=== PATIENT | male | born 1945 | race Caucasian/White ===

== ENCOUNTER 2016-07-19 08:12 | Outpatient (CLI) | payer MEDICARE ==
[2016-07-19] MEDS ORDERED: IOPAMIDOL-300 50 ML VIAL PO ONE (09:35)
[2016-07-19] MEDS ORDERED: IOPAMIDOL-300 100 ML VIAL IVP ONE (09:40)
== END 2016-07-19 08:13 | disposition home or self-care (01) ==
DX: J43.9 Emphysema, unspecified (principal); K57.30 Diverticulosis of large intestine without perforation or abscess without bleeding
CPT/HCPCS: 71260; 74177; Q9967

== ENCOUNTER 2016-11-08 10:16 | Day surgery (SDC) | payer MEDICARE ==
[2016-11-08] MEDS ORDERED: LACTATED RINGERS 1,000 ML IV ONE (10:47)
[2016-11-08] MEDS ORDERED: fentaNYL 100 MCG/2 ML VIAL IVP ONE (11:19)
[2016-11-08] MEDS ORDERED: MIDAZOLAM 2 MG/2 ML VIAL IVP ONE (11:19)
[2016-11-08 12:34] VITALS: BP 108/62
== END 2016-11-08 10:17 | disposition home or self-care (01) ==
LOC: SDS 10:16
PROVIDERS: ATTEND Surgery
PROC: 0DBL8ZX Excision of Transverse Colon, Via Natural or Artificial Opening Endoscopic, Diagnostic (ICD-10-PCS; 2016-11-08)
PROC: 0DBN8ZX Excision of Sigmoid Colon, Via Natural or Artificial Opening Endoscopic, Diagnostic (ICD-10-PCS; 2016-11-08)
PROC: 0DBP8ZX Excision of Rectum, Via Natural or Artificial Opening Endoscopic, Diagnostic (ICD-10-PCS; principal; 2016-11-08 11:30)
DX: Z12.11 Encounter for screening for malignant neoplasm of colon (principal); K63.5 Polyp of colon; D12.3 Benign neoplasm of transverse colon; K62.1 Rectal polyp; K57.30 Diverticulosis of large intestine without perforation or abscess without bleeding; K64.8 Other hemorrhoids; J45.909 Unspecified asthma, uncomplicated; F17.210 Nicotine dependence, cigarettes, uncomplicated; Z80.1 Family history of malignant neoplasm of trachea, bronchus and lung
CPT/HCPCS: 45385; J7120

== ENCOUNTER 2020-07-03 14:27 | Outpatient (CLI) | payer MEDICARE ==
--- NOTE | 2020-07-03 17:25 | XRAY Report ---
PROCEDURE: Chest 2 View X-Ray INDICATIONS: UNIL INGUINAL HERNIA, W/O OBST OR GANGR, NOT SPCF TECHNIQUE: 2 view(s) of the chest. COMPARISON: CT chest dated 04/22/2015 FINDINGS: Surgical changes and devices: None. Lungs and pleura: No pleural effusions or pneumothorax. Lungs are clear. Stable hyperaeration and flattening of the hemidiaphragms. Chronic appearing diffuse interstitial prominence. Suggestion of po ssible ovoid density projecting over the distal margin of the right first rib likely artifactual. Thi s is suggested on maintainer operator radiograph of the chest CT. Mediastinum: Mediastinal contours are normal. Heart size is normal. Bones and chest wall: No suspicious bony abnormalities. Soft tissues appear unremarkable. IMPRESSION: 1. Chest without acute cardiopulmonary abnormalities or focal airspace disease. 2. Stable findings of chronic obstructive pulmonary physiology. 3. 1.2 cm oval density projecting over the tip of the right first rib likely artifactual. This was rush ggested on prior maintainer operator radiograph of 2016 CT. Recommend continued follow-up. Comparison with any rece nt chest radiographs would also be helpful. Reviewed by: Ang Jenkins MD on 07/03/2020 5:24 PM PDT Approved by: Ang Jenkins MD on 07/03/2020 5:24 PM PDT Station ID: [id number]
== END 2020-07-03 14:28 | disposition home or self-care (01) ==
LOC: LAB 14:27 → RT 14:28
PROVIDERS: ATTEND Nurse Practitioner Family
DX: Z01.818 Encounter for other preprocedural examination (principal); K40.90 Unilateral inguinal hernia, without obstruction or gangrene, not specified as recurrent; Z20.822 Contact with and (suspected) exposure to COVID-19; J44.9 Chronic obstructive pulmonary disease, unspecified; R93.7 Abnormal findings on diagnostic imaging of other parts of musculoskeletal system
CPT/HCPCS: 71046; 93005; U0004

== ENCOUNTER 2020-07-07 08:55 | Day surgery (SDC) | payer MEDICARE ==
--- NOTE | 2020-07-03 14:36 | CONSULTATION NOTE ---
Consultation Report: Anesthesia consult requested for 75 yo male for R IHR under GA. Past surgical history of colonscopy, cataract extraction, leg debridment, and umbilical hernia repair under GA with no complications. PMH includes every day smoker with progressive COPD. Pt denies SOB with activity and rare use of albuterol. O2 sats routinely in high 90s. Daily inhaled symbacort. 1-2 daily ETOH and cannabis. BPH and RLS. Other systems negative in assessment. MP1 with FROM at neck. Pt to have chest xray and EKG completed following SPA visit, results pend ing. Instructed on NPO status for DOS. Pt had no questions at this time.
[2020-07-07] MEDS ORDERED: ceFAZolin 2 GM/50 ML 2 GM/50 ML BAG IV ONE (09:07)
[2020-07-07] MEDS ORDERED: BUPIVACAINE 0.5% PF 30 ML VIAL ONE (09:11)
[2020-07-07] MEDS ORDERED: LIDOCAINE 2%-EPI 1:100000 20 ML MDV ONE (09:11)
[2020-07-07] MEDS ORDERED: KETOROLAC 30 MG/ML VIAL ONE (09:22)
[2020-07-07] MEDS ORDERED: ONDANSETRON 4 MG/2 ML VIAL ONE (09:22)
[2020-07-07] MEDS ORDERED: DEXAMETHASONE 4 MG/ML VIAL ONE (09:22)
[2020-07-07] MEDS ORDERED: PROPOFOL 200 MG/20 ML VIAL IVP ONE ×2 (09:22→10:25)
[2020-07-07] MEDS ORDERED: LIDOCAINE-MPF 2% 5 ML VIAL ONE (09:22)
[2020-07-07] MEDS ORDERED: fentaNYL 100 MCG/2 ML VIAL ONE (09:22)
[2020-07-07] MEDS ORDERED: LACTATED RINGERS 1,000 ML IV ONE ×2 (09:30→11:02)
--- NOTE | 2020-07-07 09:40 | ANESTHESIA ---
Pre-Anesthesia VS, & Labs - Diagnosis right inguinal hernia - Procedure right inguinal hernia repair with mesh Vital Signs: Temp Pulse Resp BP Pulse Ox 36.9 C 58 L 16 131/80 H 96 07/07/20 09:32 07/07/20 09:32 07/07/20 09:32 07/07/20 09:32 07/07/20 09:32 Height: 6 ft 2 in Weight (kg): 83 kg Body Mass Index: 23.5 BMI Classification: Healthy weight - NPO >8 hours Home Medications and Allergies Home Medications: Ambulatory Orders Fluticasone Propion/Salmeterol [Wixela 250-50 Inhub] 1 each IH BID 07/01/20 Gabapentin [Neurontin] 600 mg PO QPM 07/01/20 Quetiapine Fumarate [Seroquel] 50 mg PO QPM 07/01/20 Albuterol Sulfate [Proair Hfa Inhaler] 1 - 2 puffs INH Q4HR PRN 11/08/16 Fluticasone Propion/Salmeterol [Wixela 250-50 Inhub] 1 each IH BID 07/01/20 Gabapentin [Neurontin] 600 mg PO QPM 07/01/20 Quetiapine Fumarate [Seroquel] 50 mg PO QPM 07/01/20 Allergies/Adverse Reactions: Allergies Allergy/AdvReac Type Severity Reaction Status Date / Time No Known Drug Allergies Allergy Verified 11/08/16 10:53 Anes History & Medical History - Anesthetic History Anesthesia Complications: reports: No previous complications - Medical History Cardiovascular: reports: High cholesterol Pulmonary: reports: Asthma, COPD Gastrointestinal: reports: Hemorrhoids Urinary: reports: Benign prostate hypertrophy, Kidney stones Neuro: reports: Other (RLS) Musculoskeletal: reports: Osteoarthritis Endocrine/Autoimmune: reports: None Blood Disorders: reports: None Skin: reports: None Smoking Status: Current every day smoker (1/2 pack per day) Psychosocial: reports: Alcohol (1-2 drinks per day), Cannabis (daily edibles) History of Cancer?: No - Surgical History General: reports: Colonoscopy Eyes Ears Nose Throat (EENT): reports: Cataracts, Detached retina repair, Other Exam General: Alert, Oriented x3, Cooperative, No acute distress Dental: WNL Mouth Openin Fingerbreadth Neck Mobility: Normal Mallampati classification: II Thyromental Distance: 4-6 cm Respiratory: Lungs clear, Normal breath sounds, No respiratory distress, No accessory muscle use Cardiovascular: Regular rate, Normal S1, Normal S2, No murmurs Mental/Cognitive Status: Alert/Oriented X3, Normal for patient Plan Anesthesia Type: General Consent for Procedure(s) Verified and Reviewed: Yes Code Status: Attempt Resuscitation ASA classification: 2-Mild systemic disease Is this case an emergency?: No
[2020-07-07] MEDS ORDERED: BUPIVACAINE 0.5% PF 30 ML VIAL SUBQ ONE (10:00)
[2020-07-07] MEDS ORDERED: ceFAZolin 1 GM VIAL IR ONE (10:00)
[2020-07-07] MEDS ORDERED: LIDOCAINE 2%-EPI 1:100000 20 ML MDV SUBQ ONE (10:00)
[2020-07-07] MEDS ORDERED: ceFAZolin 1 GM VIAL ONE (10:30)
[2020-07-07] MEDS ORDERED: WATER FOR INJECTION,STERILE 10 ML MC ONE (10:30)
[2020-07-07] MEDS ORDERED: GLYCOPYRROLATE 1 MG/5 ML VIAL ONE (10:46)
[2020-07-07] MEDS ORDERED: ePHEDrine 50 MG/ML VIAL IVP ONE (10:48)
[2020-07-07] MEDS ORDERED: ACETAMINOPHEN 325 MG TABLET PO PRN (10:59)
[2020-07-07] MEDS ORDERED: oxyCODONE 5 MG TABLET PO PRN (10:59)
[2020-07-07] MEDS ORDERED: ONDANSETRON 4 MG/2 ML VIAL IVP PRN ×2 (10:59→11:17)
[2020-07-07] MEDS ORDERED: IBUPROFEN 600 MG TABLET PO PRN (10:59)
--- NOTE | 2020-07-07 10:59 | OPERATIVE REPORT ---
Operative Report - General Procedure Date: 07/07/20 Planned Procedure: Right inguinal hernia repair with mesh Pre-Op Diagnosis: Painful and enlarging right inguinal hernia Procedure Performed: Right inguinal hernia repair with mesh Post Op Diagnosis: Large right inguinal hernia - Procedure Note Primary Surgeon: Sabrina Anesthesia Provider: ADA Flower Anesthesia Technique: General LMA, Local Pathology: None Estimated Blood Loss (mL): 5 Findings: Large indirect right inguinal hernia Complications: None apparent - Other Other Information/Narrative: After obtaining informed consent, the patient is brought to the operating room and placed in the supine position on the operating table. Following successful induction of general endotracheal anesthesia, appropriate padding of all bony prominences, and placement of appropriate monitors, the abdomen was prepped and draped in the standard surgical fashion. A timeout was held per scope protocol. All elements of the surgical safety checklist were followed before, during, and after the procedure. We began the procedure by infiltrating a mixture of local anesthetics medial to the anterior superior iliac spine on the right. This was done to create an ileal inguinal nerve block. We then selected a site for an incision in the right lower quadrant just superior and lateral to the right pubic tubercle. This area was anesthetized with additional local anesthetic and an incision was created here.The incision was carried down through the skin and subcutaneous tissue to reveal the fascia of the external oblique aponeurosis. Retractor was placed and the aponeurosis was opened in direction of its fibers. The ilioinguinal nerve was immediately identified. We continued by identifying the spermatic cord and gently encircling it with a Randall drain. The hernia sac was carefully dissected free from the cord structures and was noted to be in the inferior medial position. The sac was in the indirect position. We carefully dissected the spermatic cord from the sac. The hernia sac was then placed back into the abdominal cavity. We elected to repair the hernia with a large Prolene hernia system mesh implant. This was dipped in Ancef containing solution and then deployed into the defect. The posterior leaflet was straightened and flattened in the preperitoneal space. The anterior leaflet was then nicked medially to provide a place for the spermatic cord and then closed with a Vicryl suture. The more inferior aspect was then sewn to José Miguel's ligament medially. Laterally it was tucked under the external beak aponeurosis. The wound was checked for hemostasis and irrigated with warm saline solution. It was aspirated free of all fluid and particulate matter. The extra oblique aponeurosis was then closed with a running locking Vicryl suture Jeny's fascia was closed with Vicryl suture and Monocryl stitches were placed in the skin. All sponge, needle, and instrument counts were correct at the conclusion of the case. The patient was allowed awaken from anesthesia without difficulty and taken to the postanesthesia care unit in good condition.
[2020-07-07] MEDS ORDERED: NALOXONE 0.4 MG/ML VIAL IVP PRN (11:17)
[2020-07-07] MEDS ORDERED: ePHEDrine 50 MG/ML VIAL IVP PRN (11:17)
[2020-07-07] MEDS ORDERED: HYDROmorphone 0.5 MG/0.5 ML SYRINGE IVP PRN (11:17)
[2020-07-07] MEDS ORDERED: fentaNYL 100 MCG/2 ML VIAL IVP PRN (11:17)
[2020-07-07] MEDS ORDERED: MORPHINE 2 MG/ML CARPUJECT IVP PRN (11:17)
[2020-07-07] MEDS ORDERED: ATROPINE ABBOJECT 1 MG/10 ML SYRINGE IVP PRN (11:17)
[2020-07-07] MEDS ORDERED: oxyCODONE 5 MG TABLET ONE (11:53)
[2020-07-07] MEDS ORDERED: LACTATED RINGERS 1,000 ML IV SCH (12:00)
[2020-07-07 12:25] VITALS: BP 133/76
--- NOTE | 2020-07-07 13:46 | ANESTHESIA POST OP EVALUATION ---
Anesthesia Post Eval - Post Anesthesia Eval Vitals: Last Vital Signs Temp 36.3 C L 07/07/20 12:24 Pulse 64 07/07/20 12:24 Resp 14 07/07/20 12:24 BP 133/76 H 07/07/20 12:24 Pulse Ox 96 07/07/20 12:24 CV Function Including HR & BP: positive: Stable Pain Control: positive: Satisfactory Nausea & Vomiting: positive: Negative Mental Status: positive: Baseline Respiratory Status: Airway Patent Hydration Status: Satisfactory Anesthesia Complications: positive: None
== END 2020-07-07 08:56 | disposition home or self-care (01) ==
LOC: SDS 08:55
PROVIDERS: ATTEND Surgery
DX: K40.90 Unilateral inguinal hernia, without obstruction or gangrene, not specified as recurrent (principal); J44.9 Chronic obstructive pulmonary disease, unspecified; N40.0 Benign prostatic hyperplasia without lower urinary tract symptoms; F17.210 Nicotine dependence, cigarettes, uncomplicated; Z79.51 Long term (current) use of inhaled steroids; Z72.89 Other problems related to lifestyle
CPT/HCPCS: 49505; A9270; C1781; J0690; J7120

== ENCOUNTER 2020-07-09 18:00 | Emergency (ER) | payer MEDICARE ==
[2020-07-09] MEDS ORDERED: SODIUM CHLORIDE 0.9% 1,000 ML IV STA (18:54)
[2020-07-09 19:09] LABS: BASOPHILS % (AUTO) 0.2 %; EOSINOPHILS # (AUTO) 0.1 10^3/uL (0.0-0.7); EOSINOPHILS % (AUTO) 0.7 %; HCT - HEMATOCRIT 46.5 % (42.0-52.0); HGB - HEMOGLOBIN 15.5 g/dL (14.0-18.0); LYMPHOCYTES # (AUTO) 0.9 10^3/uL (1.5-3.5); MEAN CORPUSCULAR HEMOGLOBIN 29.8 pg (27.0-31.0); MEAN CORPUSCULAR HGB CONC 33.3 g/dL (32.0-36.0); MEAN CORPUSCULAR VOLUME 89.3 fL (80.0-94.0); MEAN PLATELET VOLUME 9.7 fL (7.4-11.4); MONOCYTES # (AUTO) 0.5 10^3/uL (0.0-1.0); MONOCYTES % (AUTO) 5.6 %; NEUTROPHILS # (AUTO) 7.4 10^3/uL (1.5-6.6); NEUTROPHILS % (AUTO) 83.3 %; PLT - PLATELET COUNT 271 10^3/uL (130-450); RED BLOOD COUNT 5.21 10^6/uL (4.70-6.10); RED CELL DISTRIBUTION WIDTH 13.3 % (12.0-15.0); WHITE BLOOD COUNT 8.9 x10^3/uL (4.8-10.8)
[2020-07-09 19:22] LABS: ALBUMIN 4.3 g/dL (3.2-5.5); ALBUMIN/GLOBULIN RATIO 1.5 (1.0-2.2); BILIRUBIN,TOTAL 1.2 mg/dL (0.2-1.0); CALCIUM 9.9 mg/dL (8.5-10.3); CREATININE 0.9 mg/dL (0.6-1.2); TOTAL PROTEIN 7.2 g/dL (6.7-8.2)
--- NOTE | 2020-07-09 19:38 | ED Physician Documentation ---
PD HPI NVD - Stated complaint Stated Complaint: POST OP COMPLICATIONS - Chief complaint Chief Complaint: General - History obtained from History obtained from: Patient - History of Present Illness Timing - onset: How many days ago (2) Timing - duration: Days (2) Timing - details: Gradual onset, Still present Associated symptoms: Loss of appetite, Other (Patient has had nausea with some vomiting episodically since his surgery 2 days ago for a right inguinal hernia repair by traditional method. He has been taking pain medicine and thought it was from that. He had not had any pain medicine for the last 12 hours.). No: Fever, Abdominal pain Contributing factors: Other (inguinal hernia repair 2 days ago). No: Sick contact, Bad food, Recent antibiotics Improved by: No: Vomiting Worsened by: Eating Similar symptoms before: Has not had sx before Recently seen: Surgery Review of Systems Constitutional: denies: Fever, Chills Nose: denies: Rhinorrhea / runny nose, Congestion Throat: denies: Sore throat Respiratory: denies: Cough GI: reports: Nausea, Vomiting, Constipation (no BM for the past 3 days). denies: Abdominal Pain, Diarrhea : denies: Dysuria, Frequency Skin: denies: Rash, Lesions Neurologic: reports: Generalized weakness. denies: Focal weakness, Numbness, Near syncope, Altered mental status, Headache PD PAST MEDICAL HISTORY - Past Medical History Cardiovascular: High cholesterol Respiratory: Asthma, COPD Neuro: Other (RLS) Endocrine/Autoimmune: None GI: Hemorrhoids : Benign prostate hypertrophy, Kidney stones HEENT: Chronic vision loss, Chronic hearing loss Psych: None Musculoskeletal: Osteoarthritis Derm: None - Past Surgical History General: Colonoscopy HEENT: Cataracts, Detached retina repair, Other - Present Medications Home Medications: Ambulatory Orders Medication Instructions Recorded Confirmed Albuterol Sulfate [Proair Hfa 1 - 2 puffs INH Q4HR PRN 11/08/16 07/09/20 Inhaler] Fluticasone Propion/Salmeterol 1 each IH BID 07/01/20 07/09/20 [Wixela 250-50 Inhub] Gabapentin [Neurontin] 600 mg PO QPM 07/01/20 07/09/20 Quetiapine Fumarate [Seroquel] 50 mg PO QPM 07/01/20 07/09/20 oxyCODONE [Roxicodone] 5 mg PO Q4-6H PRN #20 tablet 03/29/21 03/31/21 Ondansetron HCl [Zofran] 4 mg PO Q6HR PRN #30 tab 07/08/20 07/09/20 Tramadol HCl [Ultram] 50 - 100 mg PO Q6H PRN #40 tablet 07/08/20 07/09/20 Meclizine HCl [Antivert] 1 tablet PO Q6H PRN #20 tab 07/09/20 - Allergies Allergies/Adverse Reactions: Allergies Allergy/AdvReac Type Severity Reaction Status Date / Time No Known Drug Allergies Allergy Verified 07/09/20 18:13 - Social History Smoking Status: Current every day smoker (1/2 pack per day) PD ED PE NORMAL - Vitals Vital signs reviewed: Yes - General General: Alert and oriented X 3, No acute distress, Well developed/nourished - HEENT HEENT: Pharynx benign. No: Moist mucous membranes - Neck Neck: Supple, no meningeal sign, No adenopathy - Cardiac Cardiac: RRR, No murmur - Respiratory Respiratory: Clear bilaterally - Abdomen Abdomen: Normal bowel sounds, Soft, Non distended, No organomegaly, Other (Right inguinal hernia surgical wound with some mild local bruising but no signs of infection. Bowel sounds are present and hypoactive. There is mild local tenderness at the incision but no generalized abdominal tenderness.) - Male Male : Deferred - Rectal Rectal: Deferred - Back Back: No CVA TTP - Derm Derm: Normal color, Warm and dry - Neuro Neuro: Alert and oriented X 3, No motor deficit, Normal speech Results - Vitals Vitals: Vital Signs - 24 hr 07/09/20 07/09/20 07/09/20 18:13 20:19 21:52 Temperature 36.8 C Heart Rate 67 56 L 67 Respiratory 18 16 16 Rate Blood Pressure 176/85 H 151/83 H 164/89 H O2 Saturation 99 98 97 Oxygen O2 Source Room air - Labs Labs: Laboratory Tests 07/09/20 07/09/20 19:05 19:05 WBC 8.9 RBC 5.21 Hgb 15.5 Hct 46.5 MCV 89.3 MCH 29.8 MCHC 33.3 RDW 13.3 Plt Count 271 MPV 9.7 Neut # (Auto) 7.4 H Lymph # (Auto) 0.9 L [place] # (Auto) 0.5 Eos # (Auto) 0.1 Baso # (Auto) 0.0 Absolute Nucleated RBC 0.00 Nucleated RBC % 0.0 Sodium 137 Potassium 4.0 Chloride 99 L Carbon Dioxide 25 Anion Gap 13.0 BUN 13 Creatinine 0.9 Estimated GFR (MDRD) 83 L Glucose 94 Calcium 9.9 Total Bilirubin 1.2 H AST 27 ALT 22 Alkaline Phosphatase 85 Total Protein 7.2 Albumin 4.3 Globulin 2.9 Albumin/Globulin Ratio 1.5 Lipase 31 PD MEDICAL DECISION MAKING - ED course Complexity details: re-evaluated patient (He is feeling much better post hydration with antiemetics.), considered differential (The hernia repair was traditional open incision and not done laparoscopically. He does not have any general abdominal tenderness. I do not feel he has any concern for obstruction or such. I think he is nausea and vomiting are medication related mostly.), d/w patient Departure - Departure Disposition: 01 Home, Self Care Clinical Impression: Postoperative nausea and vomiting, Dehydration Condition: Stable Record reviewed to determine appropriate education?: Yes Instructions: ED Nausea Vomiting Follow-Up: RAYA QUEEN ARNP [Primary Care Provider] - Susan Bennett MD [Provider Admit Priv/Credential] - Prescriptions: Meclizine HCl [Antivert] 1 tablet PO Q6H PRN #20 tab PRN Reason: Vertigo Comments: Small frequent sips and bland food tonight and tomorrow and progress as able. Continue stool softener and you could add a mild laxative such as senna once or twice daily. Continue ondansetron every 6-8 hours if needed for nausea. You could add meclizine every 6 hours if needed for nausea or mild dizziness as well. I would anticipate improvement over the next couple days more with the postoperative medications and anesthesia having more time to wear off. Being rehydrated will help as well. Contact your primary care or Dr. Grossman if still feeling badly over the next day or 2. Discharge Date/Time: 07/09/20 22:04
[2020-07-09] MEDS ORDERED: ONDANSETRON 4 MG/2 ML VIAL IVP STA (19:54)
[2020-07-09] MEDS ORDERED: LACTATED RINGERS 1,000 ML IV STA (19:54)
[2020-07-09] MEDS ORDERED: FAMOTIDINE 20 MG/2 ML VIAL IVP STA (19:54)
[2020-07-09] MEDS ORDERED: MECLIZINE 12.5 MG TABLET PO STA (19:55)
[2020-07-09] MEDS ORDERED: KETOROLAC 30 MG/ML VIAL IVP STA (20:12)
[2020-07-09 21:54] VITALS: BP 164/89
--- OUTSIDE RECORDS SUMMARY | 2020-07-16 00:16 | EXTERNAL MEDICAL SUMMARY RPT | Continuity of Care Document ---
:1945 Demographics Phone Unavailable Preferred Language Unknown Marital Status Unknown [employer]ar[employer] Affiliation Unknown Race Unknown Ethnic Group Unknown Author Organization [facility] Address [address] [place] [address] Phone Social History date description facility [phone]
== END 2020-07-09 22:04 | disposition home or self-care (01) ==
LOC: ED 18:00
DX: R11.2 Nausea with vomiting, unspecified (principal); T81.89XA Other complications of procedures, not elsewhere classified, initial encounter; Y83.8 Other surgical procedures as the cause of abnormal reaction of the patient, or of later complication, without mention of misadventure at the time of the procedure; E86.0 Dehydration; F17.200 Nicotine dependence, unspecified, uncomplicated
CPT/HCPCS: 36415; 80053; 83690; 85025; 96374; 96375; 99283; 99284; A9270; J7120

== ENCOUNTER 2020-08-25 11:02 | Outpatient (CLI) | payer MEDICARE ==
--- NOTE | 2020-08-25 14:51 | CT Report ---
PROCEDURE: Low Dose Lung Cancer Screen INDICATIONS: CURRENT SMOKER TECHNIQUE: Noncontrast low-dose 5 mm thick sections acquired from the pulmonary apices to the posterior costophr enic angles. 7 mm thick coronal and sagittal MIP reformats were then acquired. For radiation dose r eduction, the following was used: automated exposure control, adjustment of mA and/or kV according t o patient size. COMPARISON: CT abdomen pelvis 07/19/2016, CT chest 04/22/2015 FINDINGS: Image quality: Excellent. Lungs and pleura: Lungs are hyperexpanded. Some of this changes are present. Small pulmonary blebs a re scattered bilaterally. There are no effusions or consolidations. No visualized mass lesions. Mary l apical scarring is noted. Mediastinum: Heart size is normal. Trace pericardial effusion. No mediastinal adenopathy by size cr iteria. Thoracic aorta and central pulmonary arteries are normal in size. Esophagus is normal in ca liber. No hiatal hernia. Bones and chest wall: No suspicious bony lesions. No vertebral body compression fractures. No axil elpidio or supraclavicular adenopathy by size criteria. Thyroid appears grossly normal. Abdomen: Visualized upper abdomen solid organs and bowel loops appear normal in the absence of contr ast. IMPRESSION: 1. Emphysematous changes. 2. No effusions, consolidations or mass lesions. Lung rads category 1. Recommend continued annual CT screening. Reviewed by: Ailyn Stevens MD on 08/25/2020 2:49 PM PDT Approved by: Ailyn Stevens MD on 08/25/2020 2:49 PM PDT Station ID: [id number]
== END 2020-08-25 11:03 | disposition home or self-care (01) ==
LOC: DI 11:02
PROVIDERS: ATTEND Nurse Practitioner Family
DX: Z12.2 Encounter for screening for malignant neoplasm of respiratory organs (principal); J43.9 Emphysema, unspecified; F17.210 Nicotine dependence, cigarettes, uncomplicated

== ENCOUNTER 2020-11-18 19:38 | Emergency (ER) | payer MEDICARE ==
[2020-11-18 19:44] VITALS: BP 135/84
--- NOTE | 2020-11-18 20:56 | ED Physician Documentation ---
PD HPI UPPER EXT INJURY - Stated complaint Stated Complaint: LT HAND LAC - Chief complaint Chief Complaint: Laceration - History obtained from History obtained from: Patient - History of Present Illness Location: Left, Finger (index/thumb) Type of injury: Laceration Where injury occurred: Home Timing - onset: How many hours ago (1) Timing - duration: Hours (1) Timing - details: Abrupt onset Pain level max: 6 Pain level now: 4 Improved by: Rest, Immobilization Worsened by: Moving, Palpating Associated symptoms: No: Weakness, Numbness, Tingling, Swelling Contributing factors: No: Anticoagulated - Additonal information Additional information: 75-year-old male states that he cut his Left hand with a saw today. Injury to the left thumb, just on the nail also an injury to the left index finger on the volar aspect. Patient is not on blood thinners. Review of Systems Constitutional: denies: Fever, Chills GI: denies: Vomiting, Diarrhea Skin: denies: Rash Musculoskeletal: denies: Neck pain, Back pain Neurologic: denies: Headache PD PAST MEDICAL HISTORY - Past Medical History Cardiovascular: High cholesterol Respiratory: Asthma, COPD Neuro: Other Endocrine/Autoimmune: None GI: Hemorrhoids : Benign prostate hypertrophy, Kidney stones HEENT: Chronic vision loss, Chronic hearing loss Psych: None Musculoskeletal: Osteoarthritis Derm: None - Past Surgical History Past Surgical History: Yes General: Colonoscopy HEENT: Cataracts, Detached retina repair, Other - Present Medications Home Medications: Ambulatory Orders Medication Instructions Recorded Confirmed Albuterol Sulfate [Proair Hfa 1 - 2 puffs INH Q4HR PRN 11/08/16 07/09/20 Inhaler] Fluticasone Propion/Salmeterol 1 each IH BID 07/01/20 07/09/20 [Wixela 250-50 Inhub] Gabapentin [Neurontin] 600 mg PO QPM 07/01/20 07/09/20 Quetiapine Fumarate [Seroquel] 50 mg PO QPM 07/01/20 07/09/20 oxyCODONE [Roxicodone] 5 mg PO Q4-6H PRN #20 tablet 07/07/20 07/09/20 Ondansetron HCl [Zofran] 4 mg PO Q6HR PRN #30 tab 07/08/20 07/09/20 Tramadol HCl [Ultram] 50 - 100 mg PO Q6H PRN #40 tablet 07/08/20 07/09/20 Meclizine HCl [Antivert] 1 tablet PO Q6H PRN #20 tab 07/09/20 - Allergies Allergies/Adverse Reactions: Allergies Allergy/AdvReac Type Severity Reaction Status Date / Time No Known Drug Allergies Allergy Verified 11/18/20 19:41 - Social History Does the pt smoke?: Yes Smoking Status: Current every day smoker Does the pt drink ETOH?: Yes Does the pt have substance abuse?: Yes - Immunizations Immunizations are current?: Yes PD ED PE NORMAL - Vitals Vital signs reviewed: Yes - General General: Alert and oriented X 3, No acute distress - Derm Derm: Warm and dry - Neuro Neuro: Alert and oriented X 3 - Psych Psych: Normal mood, Normal affect PD ED PE EXPANDED - Extremities JULIANA UE/Hands Visual: 1 - laceration (0.1 cm laceration. Nonbleeding. Neurovascularly intact. No tendon injury.) 2 - laceration (0.2 cm laceration. Neurovascular intact. Tendon intact. No active bleeding.) 3 - laceration (0.3 cm laceration. Neurovascular intact. Tendon intact. No active bleeding.) Results - Vitals Vitals: Oxygen O2 Source Room air Procedures - Laceration (location) L hand Length in cm: 0.6 (includes all 3 lacerations.) Wound type: Linear, Into subcut fat, Clean Neurovascular status: Sensory intact, Motor intact, Vascular intact Tendon involvement: Tendon intact Wound preparation: Irrigated copiously NS, Wound explored, To the base Skin layer closure: Dermabond, Other (T ring closure system) Other: Patient tolerated well, No complications, Neurovascular intact, Dressing applied, Tetanus booster given PD MEDICAL DECISION MAKING - ED course Complexity details: reviewed results, re-evaluated patient, considered differential, d/w patient ED course: Lacerations were all repaired with the T ring closure system. Tolerated well. No further bleeding. No tendon laceration. No evidence of bony injury. Tdap given. Warnings of infection and instructions on wound care given at bedside. Also counseled on how to minimize scarring. Patient counseled regarding signs and symptoms for which I believe and urgent re-evaluation would be necessary. Patient with good understanding of and agreement to plan and is comfortable going home at this time This document was made in part using voice recognition software. While efforts are made to proofread this document, sound alike and grammatical errors may occur. Departure - Departure Disposition: 01 Home, Self Care Clinical Impression: Finger laceration Qualifiers: Encounter type: initial encounter Finger: index finger Damage to nail status: without damage Foreign body presence: without foreign body Laterality: left Qualified Code(s): S61.211A - Laceration without foreign body of left index finger without damage to nail, initial encounter Thumb laceration Qualifiers: Encounter type: initial encounter Damage to nail status: with damage Foreign body presence: without foreign body Laterality: left Qualified Code(s): S61.112A - Laceration without foreign body of left thumb with damage to nail, initial encounter Condition: Good Instructions: ED Laceration Hand, ED Laceration Ext Skin Glue Follow-Up: RAYA QUEEN ARNP [Primary Care Provider] - As Needed Comments: Keep the wound clean. Limit the use of the hand for the next 24 hours. The dressing should fall off on its own in about a week or 2. Avoid any ointment as this may dissolve the glue. Return if you notice redness, swelling or drainage from the wound. Discharge Date/Time: 11/18/20 21:14
[2020-11-18] MEDS: TETANUS/DIPHTHERIA/PERTUSSIS 0.5 ML SYRINGE IM ONE (21:19)
== END 2020-11-18 21:14 | disposition home or self-care (01) ==
LOC: ED 19:38
DX: S61.112A Laceration without foreign body of left thumb with damage to nail, initial encounter (principal); S61.211A Laceration without foreign body of left index finger without damage to nail, initial encounter; F17.200 Nicotine dependence, unspecified, uncomplicated; W27.0XXA Contact with workbench tool, initial encounter
CPT/HCPCS: 12001; 90471; 99282; 99283

== ENCOUNTER 2021-01-13 12:31 | Emergency (ER) | payer MEDICARE ==
[2021-01-13] MEDS ORDERED: ONDANSETRON 4 MG/2 ML VIAL IVP STA (12:44)
[2021-01-13] MEDS ORDERED: SODIUM CHLORIDE 0.9% 1,000 ML IV STA (12:44)
--- NOTE | 2021-01-13 12:54 | ED Physician Documentation ---
History of Present Illness - Stated complaint Stated Complaint: VOMITING - Chief complaint Chief Complaint: Abd Pain - History obtained from History obtained from: Patient - History of Present Illness Timing: How many days ago (2) Pain level max: 3 Pain level now: 2 - Additonal information Additional information: Patient is a 75-year-old male who presents to the emergency department stating that he took 4 doses of tramadol on Tuesday, started having vomiting on Tuesday night. He states he has had continued vomiting since that time. Has diffuse abdominal discomfort and cramping. Denies any diarrhea or constipation. He states he is still unable to tolerate p.o. today. He states similar episode occurred when he took oxycodone after a surgery. No fevers. Occasional chills. No recent travel. No recent antibiotics. No recent surgery. Review of Systems Ten Systems: 10 systems reviewed and negative Constitutional: reports: Chills. denies: Fever Nose: denies: Rhinorrhea / runny nose, Congestion Throat: denies: Sore throat Cardiac: denies: Chest pain / pressure Respiratory: denies: Cough GI: reports: Nausea, Vomiting. denies: Constipation, Diarrhea, Hematemesis, Bloody / black stool Skin: denies: Rash Musculoskeletal: denies: Neck pain, Back pain Neurologic: denies: Headache PD PAST MEDICAL HISTORY - Past Medical History Cardiovascular: High cholesterol Respiratory: Asthma, COPD Neuro: Other Endocrine/Autoimmune: None GI: Hemorrhoids : Benign prostate hypertrophy, Kidney stones HEENT: Chronic vision loss, Chronic hearing loss Psych: None Musculoskeletal: Osteoarthritis Derm: None - Past Surgical History Past Surgical History: Yes General: Colonoscopy HEENT: Cataracts, Detached retina repair, Other - Present Medications Home Medications: Ambulatory Orders Medication Instructions Recorded Confirmed Albuterol Sulfate [Proair Hfa 1 - 2 puffs INH Q4HR PRN 11/08/16 07/09/20 Inhaler] Fluticasone Propion/Salmeterol 1 each IH BID 07/01/20 07/09/20 [Wixela 250-50 Inhub] Gabapentin [Neurontin] 600 mg PO QPM 07/01/20 07/09/20 Quetiapine Fumarate [Seroquel] 50 mg PO QPM 07/01/20 07/09/20 oxyCODONE [Roxicodone] 5 mg PO Q4-6H PRN #20 tablet 07/07/20 07/09/20 Ondansetron HCl [Zofran] 4 mg PO Q6HR PRN #30 tab 07/08/20 07/09/20 Tramadol HCl [Ultram] 50 - 100 mg PO Q6H PRN #40 tablet 07/08/20 07/09/20 Meclizine HCl [Antivert] 1 tablet PO Q6H PRN #20 tab 07/09/20 Ondansetron Odt [Zofran] 4 mg TL Q6H PRN #10 tablet 01/13/21 Promethazine [Phenergan] 25 mg PO Q6H PRN #10 tab 01/13/21 - Allergies Allergies/Adverse Reactions: Allergies Allergy/AdvReac Type Severity Reaction Status Date / Time oxycodone [From OxyContin] AdvReac Nausea Verified 01/13/21 12:42 - Social History Does the pt smoke?: Yes Smoking Status: Current every day smoker Does the pt drink ETOH?: Yes Does the pt have substance abuse?: Yes - Immunizations Immunizations are current?: Yes PD ED PE NORMAL - Vitals Vital signs reviewed: Yes - General General: Alert and oriented X 3, No acute distress, Well developed/nourished - HEENT HEENT: Moist mucous membranes - Neck Neck: Supple, no meningeal sign - Cardiac Cardiac: RRR, Strong equal pulses - Respiratory Respiratory: No respiratory distress, Clear bilaterally - Abdomen Abdomen: Normal bowel sounds, Soft, Non tender, Non distended - Derm Derm: Warm and dry - Extremities Extremities: No calf tenderness / cord - Neuro Neuro: Alert and oriented X 3 - Psych Psych: Normal mood, Normal affect Results - Vitals Vitals: Vital Signs - 24 hr 01/13/21 01/13/21 12:35 14:08 Temperature 36.8 C Heart Rate 73 70 Respiratory 20 10 L Rate Blood Pressure 178/90 H 169/95 H O2 Saturation 97 97 Oxygen O2 Source Room air - Labs Labs: Laboratory Tests 01/13/21 01/13/21 01/13/21 12:50 12:50 14:05 WBC 10.5 RBC 5.57 Hgb 16.0 Hct 48.2 MCV 86.5 MCH 28.7 MCHC 33.2 RDW 13.5 Plt Count 322 MPV 9.9 Neut # (Auto) 8.7 H Lymph # (Auto) 1.1 L [place] # (Auto) 0.7 Eos # (Auto) 0.0 Baso # (Auto) 0.0 Absolute Nucleated RBC 0.00 Nucleated RBC % 0.0 Sodium 137 Potassium 4.0 Chloride 101 Carbon Dioxide 22 Anion Gap 14.0 H BUN 16 Creatinine 0.9 Estimated GFR (MDRD) 83 L Glucose 114 H Calcium 9.8 Total Bilirubin 1.3 H AST 34 ALT 28 Alkaline Phosphatase 80 Total Protein 7.8 Albumin 4.6 Globulin 3.2 Albumin/Globulin Ratio 1.4 Lipase 35 Urine Color YELLOW Urine Clarity CLEAR Urine pH 7.0 Ur Specific [place] 1.015 Urine Protein 30 H Urine Glucose (UA) NEGATIVE Urine Ketones 40 H Urine Occult Blood SMALL H Urine Nitrite NEGATIVE Urine Bilirubin NEGATIVE Urine Urobilinogen 0.2 (NORMAL) Ur Leukocyte Esterase NEGATIVE Urine RBC 6-10 H Urine WBC 0-3 Ur Squamous Epith Cells MOD Squamous H Urine Bacteria Rare Ur Microscopic Review INDICATED Urine Culture Comments NOT INDICATED - Rads (name of study) CT abdomen pelvis Radiology: Final report received, EMP read contemporaneously, See rad report PD MEDICAL DECISION MAKING - ED course Complexity details: reviewed results, re-evaluated patient, considered differential, d/w patient ED course: 75-year-old male with vomiting today. Unclear etiology. Symptoms resolved with Zofran and IV fluids. No acute findings on laboratory testing or CT scan. Possibly related to the tramadol? We will have him stop this at home. Tolerating p.o. without difficulty here. Abdomen is soft, nontender nond istended on serial exam. Patient counseled regarding signs and symptoms for which I believe and urgent re-evaluation would be necessary. Patient with good understanding of and agreement to plan and is comfortable going home at this time This document was made in part using voice recognition software. While efforts are made to proofread this document, sound alike and grammatical errors may occur. IMPRESSION: No acute abnormality can be seen. No dilated loops of bowel are seen. No free air or significant free fluid can be seen. Normal appendix. Incidental note is made of: Small hiatal hernia Stable right renal cyst Diverticulosis, without active diverticulitis Prominent prostate Lumbar spine degenerative change Levoconvex scoliotic curvature Departure - Departure Disposition: 01 Home, Self Care Clinical Impression: Vomiting Qualifiers: Vomiting type: unspecified Vomiting Intractability: non-intractable Nausea presence: with nausea Qualified Code(s): R11.2 - Nausea with vomiting, unspecified Condition: Good Instructions: ED Nausea Vomiting Follow-Up: your,doctor in 1 week [Other] Prescriptions: Promethazine [Phenergan] 25 mg PO Q6H PRN #10 tab PRN Reason: Nausea / Vomiting Ondansetron Odt [Zofran] 4 mg TL Q6H PRN #10 tablet PRN Reason: Nausea / Vomiting Comments: Your prescriptions were sent to [facility] in [place]. Drink plenty of water. Return if you worsen. Your CT scan does not show any acute abnormalities. Pl ease stop the tramadol for now.
[2021-01-13 12:56] LABS: BASOPHILS % (AUTO) 0.3 %; EOSINOPHILS % (AUTO) 0.1 %; HCT - HEMATOCRIT 48.2 % (42.0-52.0); LYMPHOCYTES # (AUTO) 1.1 10^3/uL (1.5-3.5); MEAN CORPUSCULAR HEMOGLOBIN 28.7 pg (27.0-31.0); MEAN CORPUSCULAR HGB CONC 33.2 g/dL (32.0-36.0); MEAN CORPUSCULAR VOLUME 86.5 fL (80.0-94.0); MEAN PLATELET VOLUME 9.9 fL (7.4-11.4); MONOCYTES # (AUTO) 0.7 10^3/uL (0.0-1.0); MONOCYTES % (AUTO) 6.3 %; NEUTROPHILS # (AUTO) 8.7 10^3/uL (1.5-6.6); PLT - PLATELET COUNT 322 10^3/uL (130-450); RED BLOOD COUNT 5.57 10^6/uL (4.70-6.10); RED CELL DISTRIBUTION WIDTH 13.5 % (12.0-15.0); WHITE BLOOD COUNT 10.5 x10^3/uL (4.8-10.8)
[2021-01-13 13:10] LABS: ALBUMIN 4.6 g/dL (3.2-5.5); ALBUMIN/GLOBULIN RATIO 1.4 (1.0-2.2); BILIRUBIN,TOTAL 1.3 mg/dL (0.2-1.0); CALCIUM 9.8 mg/dL (8.5-10.3); CREATININE 0.9 mg/dL (0.6-1.2); TOTAL PROTEIN 7.8 g/dL (6.7-8.2)
[2021-01-13] MEDS ORDERED: IOVERSOL 320 100 ML VIAL IVP ONE ×2 (13:48→17:54)
[2021-01-13] MEDS ORDERED: KETOROLAC 30 MG/ML VIAL IVP STA (13:49)
[2021-01-13 14:13] LABS: BILIRUBIN,URINE NEGATIVE (NEGATIVE); GLUCOSE, URINE (UA) NEGATIVE (NEGATIVE); KETONES,URINE (UA) 40 mg/dL (NEGATIVE); LEUKOCYTE ESTERASE, URINE NEGATIVE (NEGATIVE); NITRITE,URINE NEGATIVE (NEGATIVE); OCCULT BLOOD,URINE SMALL (NEGATIVE); PROTEIN,URINE 30 mg/dL (NEGATIVE); UROBILINOGEN,URINE 0.2 (NORMAL) E.U./dL (NORMAL)
[2021-01-13 14:21] LABS: BACTERIA,URINE Rare /HPF (None Seen); CLARITY,URINE CLEAR (CLEAR); SQUAMOUS EPITHELIAL CELL,UR MOD Squamous (<= Few); WBC,URINE 0-3 /HPF (0-3)
--- NOTE | 2021-01-13 14:23 | CT Report ---
PROCEDURE: Abdomen/Pelvis W INDICATIONS: diffuse abd pain, vomiting CONTRAST: IV CONTRAST: Optiray 320 ml: 100 PO CONTRAST: *NO PO CONTRAST TECHNIQUE: After the administration of 07/19/2016 contrast, 5 mm thick sections acquired from the diaphragms to t he symphysis. 5 mm thick coronal and sagittal reformats were acquired. For radiation dose reduction , the following was used: automated exposure control, adjustment of mA and/or kV according to patien t size. COMPARISON: None. FINDINGS: Image quality: Excellent. ABDOMEN: Lung bases: Lung bases are clear. Heart size is normal. A small hiatal hernia is incidentally note d. Solid organs: Liver and spleen are normal in size and enhancement. Gallbladder wall does not appear thickened. Biliary system is non dilated. Pancreas enhances normally. No adrenal nodules. Kidn eys demonstrate normal size and enhancement, without hydronephrosis. Along the medial aspect of the right kidney, there is a nonenhancing cyst seen that measures up to 3 cm, which is not significantly changed compared to 2017. Peritoneum and bowel: Bowel loops demonstrate normal wall thickness and caliber. No free fluid or a ir. Diverticulosis can be seen, without pablo findings of active diverticulitis. A normal appendix i s incidentally noted. Nodes and vessels: No retroperitoneal or mesenteric adenopathy by size criteria. Aorta and inferior vena cava are normal in size. Atherosclerotic calcification is seen. Miscellaneous: No ventral hernias. PELVIS: Genitourinary: Bladder wall thickness is normal. The prostate is prominent, measuring 6.3 cm transv ersely Miscellaneous: No inguinal hernias or adenopathy. Bones: No suspicious bony lesions. No vertebral body compression fractures. Degenerative changes a re seen throughout, which are worst involving the lumbar spine. Mild levoconvex scoliotic curvature i s seen. IMPRESSION: No acute abnormality can be seen. No dilated loops of bowel are seen. No free air or significant free fluid can be seen. Normal appendix. Incidental note is made of: Small hiatal hernia Stable right renal cyst Diverticulosis, without active diverticulitis Prominent prostate Lumbar spine degenerative change Levoconvex scoliotic curvature Reviewed by: Jayden Kaplan MD on 01/13/2021 1:21 PM AKDT Approved by: Jayden Kaplan MD on 01/13/2021 1:21 PM AKDT Station ID: [id number]
[2021-01-13 14:59] VITALS: BP 171/89
== END 2021-01-13 15:03 | disposition home or self-care (01) ==
LOC: ED 12:31
DX: R11.2 Nausea with vomiting, unspecified (principal); F17.200 Nicotine dependence, unspecified, uncomplicated
CPT/HCPCS: 36415; 74177; 80053; 81001; 83690; 85025; 96361; 96374; 96375; 99284; Q9967; 81003; 87086

== ENCOUNTER 2021-10-02 19:05 | Emergency (ER) | payer MEDICARE ==
[2021-10-02] MEDS ORDERED: BACITRACIN ZINC OINT 1 PACKET TOP STA (19:35)
--- NOTE | 2021-10-02 19:52 | ED Physician Documentation ---
History of Present Illness - Stated complaint Stated Complaint: LT THUMB VS SAW - Chief complaint Chief Complaint: Laceration - Additonal information Additional information: 76-year-old male presents to the emergency department for evaluation of a left thumb laceration sustained when using a table saw. Reports his tetanus as up-to-date. He is right-hand dominant. Review of Systems Constitutional: reports: Reviewed and negative Ears: reports: Loss of hearing Nose: reports: Reviewed and negative Cardiac: reports: Reviewed and negative Respiratory: reports: Reviewed and negative Skin: reports: Laceration (s) PD PAST MEDICAL HISTORY - Past Medical History Cardiovascular: High cholesterol Respiratory: Asthma, COPD Neuro: Other Endocrine/Autoimmune: None GI: Hemorrhoids : Benign prostate hypertrophy, Kidney stones HEENT: Chronic vision loss, Chronic hearing loss Psych: None Musculoskeletal: Osteoarthritis Derm: None - Past Surgical History Past Surgical History: Yes General: Colonoscopy HEENT: Cataracts, Detached retina repair, Other - Present Medications Home Medications: Ambulatory Orders Medication Instructions Recorded Confirmed Albuterol Sulfate [Proair Hfa 1 - 2 puffs INH Q4HR PRN 11/08/16 07/09/20 Inhaler] Fluticasone Propion/Salmeterol 1 each IH BID 07/01/20 07/09/20 [Wixela 250-50 Inhub] Gabapentin [Neurontin] 600 mg PO QPM 07/01/20 07/09/20 Quetiapine Fumarate [Seroquel] 50 mg PO QPM 07/01/20 07/09/20 oxyCODONE [Roxicodone] 5 mg PO Q4-6H PRN #20 tablet 07/07/20 07/09/20 Tramadol HCl [Ultram] 50 - 100 mg PO Q6H PRN #40 tablet 07/08/20 07/09/20 ondansetron HCL [Zofran] 4 mg PO Q6HR PRN #30 tab 07/08/20 07/09/20 Meclizine HCl [Antivert] 1 tablet PO Q6H PRN #20 tab 07/09/20 Ondansetron Odt [Zofran] 4 mg TL Q6H PRN #10 tablet 01/13/21 Promethazine [Phenergan] 25 mg PO Q6H PRN #10 tab 01/13/21 HYDROcod/ACETAM 5/325 [Norton 5/325] 1 tablet PO BID PRN #10 tablet 10/02/21 Ondansetron Odt [Zofran] 4 mg TL Q6H PRN #10 tablet 10/02/21 cephALEXin [Keflex] 500 mg PO Q6H #28 cap 10/02/21 - Allergies Allergies/Adverse Reactions: Allergies Allergy/AdvReac Type Severity Reaction Status Date / Time oxycodone [From OxyContin] AdvReac Nausea Verified 10/02/21 19:20 tramadol AdvReac Nausea Verified 10/02/21 19:20 - Social History Does the pt smoke?: Yes Smoking Status: Current every day smoker Does the pt drink ETOH?: Yes Does the pt have substance abuse?: Yes - Immunizations Immunizations are current?: Yes PD ED PE EXPANDED - Extremities Extremities: Left finger(s) (3.5 cm laceration fat pad of the thumb at DIP. Patient is able to flex and extend against resistance. Heavy bleeding. Moderate amount of tissue loss) Results - Vitals Vitals: Vital Signs - 24 hr 10/02/21 19:17 Temperature 37.3 C Heart Rate 72 Respiratory 16 Rate Blood Pressure 133/70 H O2 Saturation 93 Oxygen O2 Source Room air - Rads (name of study) thumb Radiology: Final report received (No intra-articular involvement.) Procedures - Laceration (location) left thumb Length in cm: 3.5 Wound type: Irregular, Into muscle, Contaminated Neurovascular status: Motor intact Tendon involvement: Tendon intact Anesthesia: Lidocaine 1% Wound preparation: Hibiclens, Irrigated copiously NS, Debrided extensively, Wound explored Skin layer closure: Interrupted, Size #-0 - enter number (4), Sutures - enter # (6) Other: Patient tolerated well, No complications, Tetanus UTD PD MEDICAL DECISION MAKING - ED course Complexity details: reviewed results, considered differential, d/w patient ED course: 76-year-old male presents emergency department with a large gaping wound to the distal tip of his left thumb after encountering a sawblade this afternoon. X- ray does not reveal a fracture. He is able to flex and extend the thumb at the DIP joint. The distal tip does have some numbness and I suspect a peripheral nerve injury. Much of the wound required debridement. Wound was approximated with 6 sutures. There is a section of the wound on the ulnar side of the thumb that was not amenable to primary closure. Patient will be started on Keflex prophylactically. A prescription for hydrocodone and Zofran given history of vomiting with opiates was sent to the pharmacy. Routine wound care and emergent return precautions were discussed. Departure - Departure Disposition: 01 Home, Self Care Clinical Impression: Laceration of left thumb Qualifiers: Encounter type: sequela Damage to nail status: without damage Foreign body presence: without foreign body Qualified Code(s): S61.012S - Laceration without foreign body of left thumb without damage to nail, sequela Condition: Stable Record reviewed to determine appropriate education?: Yes Prescriptions: cephALEXin [Keflex] 500 mg PO Q6H #28 cap HYDROcod/ACETAM 5/325 [Norton 5/325] 1 tablet PO BID PRN #10 tablet PRN Reason: Pain Ondansetron Odt [Zofran] 4 mg TL Q6H PRN #10 tablet PRN Reason: Nausea / Vomiting Comments: Abdiaziz you did sustain a large laceration to the tip of your thumb as well as the loss of some significant tissue. We did close as much of the wound as we could with 6 sutures. The suture should be removed in 10 to 14 days. Parts of this wound will have to heal from the inside out and this will take a few weeks. In 24 hours you can gently remove your dressing, wash with warm soap and water and then pat dry. Apply a thin layer of any antibiotic ointment such as bacitracin or Neosporin, the thin Mepilex gauze and then a bandage over the thumb. This thumb is at higher risk of infection. Please fill the prescription for the antibiotics and begin taking as directed. This has been sent to the [facility] in [place]. In general I recommend that you take Tylenol or ibuprofen [id number]-hyh-sadzbvv for discomfort. I have sent a limited amount of hydrocodone to the [facility] in [place]. Because you have a history of nausea with opiates I have also sent a prescription for Zofran. If it causes excessive nausea and vomiting then please do not take the hydrocodone anymore. If at any point you develop fevers, have increased pain, milky drainage redness or swelling then please return to the ER for repeat evaluation I am prescribing a short course of narcotic pain medication for you. These are potentially dangerous and addictive medications that should be used carefully. These medications may constipate you. Take an wsnr-dhi-eokiryp stool softener (docusate) twice daily with plenty of water while taking these medications. If you go 24 hours without a bowel movement, take aadm-nyt-dgrrolc miralax, per package instructions. Do not drink or drive while taking these medications. If you received narcotic or sedating medications while in the emergency department, do not drive for 24 hours. Store this medication in a safe, secure place and out of reach of children. It is a violation of federal law to give or sell this medication to another person or to use in a manner other than prescribed. The ED will not refill narcotic prescriptions, including prescriptions lost or stolen. To dispose of unwanted medications: 1. [facility] at [address] in [place] has a medication drop box. They accept prescription medications (in pill form) Tuesday through Tuesday 9:00 a.m. to 5:00 p.m. 2. The [facility] accepts prescription medications (in pill form only) for disposal year round. Call for more information. 3. Contact the [facility] for the next [facility] sponsored prescription drug collection event. , [phone], or [phone]; Note that many narcotic pain relievers also contain Tylenol/acetaminophen. Please ensure that your total dose of acetaminophen from all sources does not exceed 3 g (3000 mg) per day.
--- NOTE | 2021-10-02 20:02 | XRAY Report ---
PROCEDURE: Finger(s) LT INDICATIONS: thumb lac; r/o fx TECHNIQUE: AP hand, 2 views of the first finger(s) acquired. COMPARISON: None FINDINGS: Bones: There is an incomplete amputation seen of the distal phalanx of the thumb, which is consistent with a saw blade going partially across the distal phalanx of the thumb. There is no intra-articular involvement. Age-appropriate degenerative changes are seen. Soft tissues: Soft tissue injury is seen of the thumb, with bandaging material. IMPRESSION: Saw blade injury of the distal phalanx of the thumb, with associated soft tissue injury. Reviewed by: Jayden Kaplan MD on 10/02/2021 7:01 PM RADHA Approved by: Jayden Kaplan MD on 10/02/2021 7:01 PM RADHA Station ID: [id number]
[2021-10-02] MEDS ORDERED: HYDROcod/ACETAM 5/325 MG TABLET PO STA (20:23)
[2021-10-02] MEDS ORDERED: ONDANSETRON ODT 4 MG TABLET TL STA (20:23)
[2021-10-02 20:31] VITALS: BP 146/84
== END 2021-10-02 20:29 | disposition home or self-care (01) ==
LOC: ED 19:05
DX: S61.012A Laceration without foreign body of left thumb without damage to nail, initial encounter (principal); W27.0XXA Contact with workbench tool, initial encounter; F17.200 Nicotine dependence, unspecified, uncomplicated
CPT/HCPCS: 12042; 73140; 99282; 99283; A9270; Q0162

== ENCOUNTER 2023-02-11 11:57 | Outpatient (CLI) | payer MEDICARE ==
--- NOTE | 2023-02-13 20:01 | CT Report ---
PROCEDURE: Low Dose Lung Cancer Screen INDICATIONS: SCREENING FOR LUNG CANCER TECHNIQUE: A CT scan of the chest was performed. Intravenous contrast media was not administered. Images were re corded and evaluated at appropriate window settings. Reformats: axial MIP of the chest, coronal and s agittal. For radiation dose reduction, the following was used: automated exposure control, adjustment of mA and/or kV according to patient size. COMPARISON: CT low dose chest 08/25/2020. FINDINGS: Image quality: Excellent. Prior cancer history: Unsure. Lungs and pleura: No pleural effusions. No pneumothorax. Mild to moderate centrilobular eczematous c hanges and small bilateral pulmonary blebs. No suspicious pulmonary nodules which require follow up. Mediastinum: Heart size is normal. No pericardial effusion. Aortic arch calcifications. No mediastina l adenopathy by size criteria. Mild coronary artery calcifications. Chest wall and lower neck: Thyroid is unremarkable. No axillary or supraclavicular adenopathy by size . Bones: No aggressive osseous abnormality. Upper Abdomen: Unremarkable. IMPRESSION: Emphysematous changes. No suspicious pulmonary nodule. Lung RAD: 1 - Negative. Recommendation: Continue annual screening in 12 Months with LDCT Non-Lung Significant Findings: None. Reviewed by: Mendy Treviño MD on 02/13/2023 8:00 PM PST Approved by: Mendy Treviño MD on 02/13/2023 8:00 PM PST Station ID: [id number]
== END 2023-02-11 11:58 | disposition home or self-care (01) ==
LOC: DI 11:57
PROVIDERS: ATTEND Nurse Practitioner Family
DX: Z12.2 Encounter for screening for malignant neoplasm of respiratory organs (principal); J43.9 Emphysema, unspecified; F17.210 Nicotine dependence, cigarettes, uncomplicated

== ENCOUNTER 2023-04-18 08:00 | Outpatient (CLI) | payer MEDICARE ==
--- NOTE | 2023-04-18 16:37 | XRAY Report ---
PROCEDURE: Chest 2V INDICATIONS: BRONCHITIS, ACUEE TECHNIQUE: 2 views of the chest were acquired. COMPARISON: None. FINDINGS: Surgical changes and devices: None. Lungs and pleura: No pleural effusions or pneumothorax. Lungs are clear. Mediastinum: Mediastinal contours appear normal. Heart size is normal. Bones and chest wall: No suspicious bony lesions. Overlying soft tissues appear unremarkable. IMPRESSION: No acute cardiopulmonary process. Reviewed by: Mendy Treviño MD on 04/18/2023 4:36 PM PST Approved by: Mendy Treviño MD on 04/18/2023 4:36 PM [facility] Station ID: [id number]
== END 2023-04-18 23:59 | disposition home or self-care (01) ==
LOC: DI.S 08:00
PROVIDERS: ATTEND Emergency Medicine
DX: J20.9 Acute bronchitis, unspecified (principal)

== ENCOUNTER → 2023-05-20 | Outpatient (CLI) | payer MEDICARE | LOC: LAB.S 08:00 | PROVIDERS: ATTEND Physician Assistant Medical | DX: R05.9 Cough, unspecified (principal) ==

== ENCOUNTER 2023-08-05 14:48 | Emergency (ER) | payer MEDICARE ==
[2023-08-05 14:57] VITALS: O2SAT 98
--- NOTE | 2023-08-05 15:29 | ED Physician Documentation ---
PD HPI ABD PAIN - Stated complaint Stated Complaint: LOWER ABD PX - Chief complaint Chief Complaint: Abd Pain - History obtained from History obtained from: Patient - Additional information Additional information: Patient is a 78-year-old male presenting for evaluation of suprapubic pain that he noticed yesterday. He denies dysuria or hematuria. He recently completed a course of penicillin for a tooth infection so felt a UTI was unlikely. He went to the walk-in clinic and they noted that he had swelling to his right testicle. Patient states that this been ongoing for months. No fever, nausea, vomiting. Walk-in clinic recommended he come to the emergency department for further evaluation. Review of Systems Constitutional: denies: Fever Cardiac: denies: Chest pain / pressure Respiratory: denies: Dyspnea GI: reports: Abdominal Pain. denies: Vomiting, Diarrhea : denies: Dysuria PD PAST MEDICAL HISTORY - Past Medical History Past Medical History: Yes Cardiovascular: High cholesterol Respiratory: Asthma, COPD Neuro: Other Endocrine/Autoimmune: None GI: Hemorrhoids : Benign prostate hypertrophy, Kidney stones HEENT: Chronic vision loss, Chronic hearing loss Psych: None Musculoskeletal: Osteoarthritis Derm: None - Past Surgical History Past Surgical History: Yes General: Colonoscopy HEENT: Cataracts, Detached retina repair, Other - Present Medications Home Medications: Ambulatory Orders Medication Instructions Recorded Confirmed Albuterol Sulfate [Proair Hfa 1 - 2 puffs INH Q4HR PRN 11/08/16 07/09/20 Inhaler] Fluticasone Propion/Salmeterol 1 each IH BID 07/01/20 07/09/20 [Wixela 250-50 Inhub] Gabapentin [Neurontin] 600 mg PO QPM 07/01/20 07/09/20 Quetiapine Fumarate [Seroquel] 50 mg PO QPM 07/01/20 07/09/20 oxyCODONE [Roxicodone] 5 mg PO Q4-6H PRN #20 tablet 07/07/20 07/09/20 Tramadol HCl [Ultram] 50 - 100 mg PO Q6H PRN #40 tablet 07/08/20 07/09/20 ondansetron HCL [Zofran] 4 mg PO Q6HR PRN #30 tab 07/08/20 07/09/20 Meclizine HCl [Antivert] 1 tablet PO Q6H PRN #20 tab 07/09/20 Ondansetron Odt [Zofran] 4 mg TL Q6H PRN #10 tablet 01/13/21 Promethazine [Phenergan] 25 mg PO Q6H PRN #10 tab 01/13/21 HYDROcod/ACETAM 5/325 [[place] 5/325] 1 tablet PO BID PRN #10 tablet 10/02/21 Ondansetron Odt [Zofran] 4 mg TL Q6H PRN #10 tablet 10/02/21 cephALEXin [Keflex] 500 mg PO Q6H #28 cap 10/02/21 Amox/Clav 875/125 [Augmentin] 1 each PO Q12H #20 tablet 08/05/23 - Allergies Allergies/Adverse Reactions: Allergies Allergy/AdvReac Type Severity Reaction Status Date / Time oxycodone [From OxyContin] AdvReac Nausea Verified 08/05/23 14:53 tramadol AdvReac Nausea Verified 08/05/23 14:53 - Social History Does the pt smoke?: Yes Smoking Status: Current every day smoker Does the pt drink ETOH?: Yes Does the pt have substance abuse?: Yes - Immunizations Immunizations are current?: Yes PD ED PE NORMAL - General General: Alert and oriented X 3, No acute distress, Well developed/nourished - HEENT HEENT: Atraumatic - Neck Neck: Supple, no meningeal sign - Cardiac Cardiac: RRR, Strong equal pulses - Respiratory Respiratory: No respiratory distress, Clear bilaterally - Abdomen Abdomen: Normal bowel sounds, Soft, Non tender, Non distended - 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), Other (Mild swelling to right scrotum compared to left, no redness, no significant tenderness) - Derm Derm: Warm and dry - Neuro Neuro: Normal speech Results - Vitals Vitals: Vital Signs - 24 hr 08/05/23 08/05/23 14:53 17:31 Temperature 36.8 C 37.4 C Heart Rate 70 64 Respiratory 16 18 Rate Blood Pressure 136/70 H 134/74 H O2 Saturation 98 98 Oxygen O2 Source Room air - Labs Labs: Laboratory Tests 08/05/23 08/05/23 08/05/23 15:35 15:35 16:07 WBC 13.1 H RBC 5.22 Hgb 14.5 Hct 45.9 MCV 87.9 MCH 27.8 MCHC 31.6 L RDW 13.7 Plt Count 297 MPV 9.5 Neut # (Auto) 11.0 H Lymph # (Auto) 1.2 L [place] # (Auto) 0.7 Eos # (Auto) 0.1 Baso # (Auto) 0.0 Absolute Nucleated RBC 0.00 Nucleated RBC % 0.0 Sodium 137 Potassium 3.8 Chloride 102 Carbon Dioxide 28 Anion Gap 7.0 BUN 16 Creatinine 1.1 Estimated GFR (MDRD) 65 L Glucose 125 H Calcium 9.4 Total Bilirubin 1.1 H AST 18 ALT 16 Alkaline Phosphatase 73 Total Protein 7.1 Albumin 4.3 Globulin 2.8 Albumin/Globulin Ratio 1.5 Lipase 29 Urine Color DARK YELLOW Urine Clarity CLEAR Urine pH 5.5 Ur Specific [place] >=1.030 H Urine Protein 100 H Urine Glucose (UA) NEGATIVE Urine Ketones 15 H Urine Occult Blood NEGATIVE Urine Nitrite NEGATIVE Urine Bilirubin SMALL H Urine Urobilinogen 1 (NORMAL) Ur Leukocyte Esterase NEGATIVE Urine RBC 0-5 Urine WBC 0-3 Ur Squamous Epith Cells FEW Squamous Urine Bacteria Rare Urine Mucus Moderate Strands Ur Microscopic Review INDICATED Urine Culture Comments NOT INDICATED PD Medical Decision Making - ED course Complexity details: reviewed results, re-evaluated patient, d/w patient ED course: Patient is a 78-year-old male presenting for evaluation of scrotal swelling as well as lower abdominal pain. Vital signs are stable. Only mild tenderness noted on exam.Labs reviewed including CBC, chemistries and urinalysis without significant findings other than mild elevation in white count at 13,000. Ultrasound was obtained of the testicles which reveals bilateral hydroceles. No mass or other abnormal findings. CT scan was also obtained which shows sigmoid diverticulitis. Patient is tolerating p.o. intake and otherwise is well- appearing and appropriate for outpatient treatment. Counseled patient on findings, Treatment plan as well as Need for follow-up and concerning symptoms to return for. Departure - Departure Disposition: 01 Home, Self Care Clinical Impression: Hydrocele, Diverticulitis Condition: Stable Instructions: ED Diverticulitis, ED Hydrocele Type Not Specified Follow-Up: Diego Corona MD [Provider Admit Priv/Credential] - Prescriptions: Amox/Clav 875/125 [Augmentin] 1 each PO Q12H #20 tablet Comments: Your ultrasound shows that you have hydroceles around bilateral testes which are fluid collections. You can follow-up with our local urologist, Dr. Corona to discuss options for treatment if desired. Your CT scan shows diverticulitis which is an infection. I am sending a prescription for an antibiotic to [facility] in [place]. I would recommend follow-up with your primary care doctor. Please return to the ER with any worsening symptoms. Forms: PCP List
[2023-08-05 15:43] LABS: BASOPHILS % (AUTO) 0.2 %; EOSINOPHILS # (AUTO) 0.1 10^3/uL (0.0-0.7); EOSINOPHILS % (AUTO) 0.9 %; HCT - HEMATOCRIT 45.9 % (42.0-52.0); HGB - HEMOGLOBIN 14.5 g/dL (14.0-18.0); LYMPHOCYTES # (AUTO) 1.2 10^3/uL (1.5-3.5); LYMPHOCYTES % (AUTO) 9.2 %; MEAN CORPUSCULAR HEMOGLOBIN 27.8 pg (27.0-31.0); MEAN CORPUSCULAR HGB CONC 31.6 g/dL (32.0-36.0); MEAN CORPUSCULAR VOLUME 87.9 fL (80.0-94.0); MEAN PLATELET VOLUME 9.5 fL (7.4-11.4); MONOCYTES # (AUTO) 0.7 10^3/uL (0.0-1.0); MONOCYTES % (AUTO) 5.4 %; NEUTROPHILS % (AUTO) 84.1 %; PLT - PLATELET COUNT 297 10^3/uL (130-450); RED BLOOD COUNT 5.22 10^6/uL (4.70-6.10); RED CELL DISTRIBUTION WIDTH 13.7 % (12.0-15.0); WHITE BLOOD COUNT 13.1 x10^3/uL (4.8-10.8)
[2023-08-05 15:57] LABS: ALBUMIN 4.3 g/dL (3.2-5.5); ALBUMIN/GLOBULIN RATIO 1.5 (1.0-2.2); BILIRUBIN,TOTAL 1.1 mg/dL (0.2-1.0); CALCIUM 9.4 mg/dL (8.5-10.3); CREATININE 1.1 mg/dL (0.6-1.3); POTASSIUM 3.8 mmol/L (3.5-4.5); TOTAL PROTEIN 7.1 g/dL (6.4-8.9)
[2023-08-05 16:12] LABS: BILIRUBIN,URINE SMALL (NEGATIVE); GLUCOSE, URINE (UA) NEGATIVE (NEGATIVE); KETONES,URINE (UA) 15 mg/dL (NEGATIVE); LEUKOCYTE ESTERASE, URINE NEGATIVE (NEGATIVE); NITRITE,URINE NEGATIVE (NEGATIVE); OCCULT BLOOD,URINE NEGATIVE (NEGATIVE); PH,URINE 5.5 PH (5.0-7.5); PROTEIN,URINE 100 mg/dL (NEGATIVE); UROBILINOGEN,URINE 1 (NORMAL) E.U./dL (NORMAL)
[2023-08-05 16:13] LABS: CLARITY,URINE CLEAR (CLEAR)
[2023-08-05 16:23] LABS: BACTERIA,URINE Rare /HPF (None Seen); MUCUS,URINE Moderate Strands; RBC,URINE 0-5 /HPF (0-5); SQUAMOUS EPITHELIAL CELL,UR FEW Squamous (<= Few); WBC,URINE 0-3 /HPF (0-3)
[2023-08-05] MEDS ORDERED: iohexoL-300 100 ML VIAL ONE (16:37)
--- NOTE | 2023-08-05 17:22 | Ultrasound Report ---
PROCEDURE: Testicle w/Doppler INDICATIONS: R testicle swelling TECHNIQUE: Real-time scanning was performed of the scrotum and testicles, with image documentation. Color and p ulse Doppler interrogation was performed of both testicles. COMPARISON: None. FINDINGS: Right: Testicle is normal in size at 4.8 x 2.9 x 2.7 cm, and homogenous in echotexture. Epididymis is normal in overall size and morphology. Large hydrocele. No varicoceles. Overlying scrotal skin i s normal in thickness. Left: Testicle is normal in size at 4.3 x 1.9 x 2.8 cm, and homogeneous in echotexture. Small testic ular cyst measuring 3 mm. Epididymis is normal in overall size and morphology. Epididymal cyst measur ing 5 mm. Moderate hydrocele. No varicoceles. Overlying scrotal skin is normal in thickness. Doppler: Color and pulse Doppler demonstrate normal and symmetric arterial flow in both testicles. IMPRESSION: 1.Testicles and epididymides are normal in appearance. 2.Large right and moderate left hydroceles. Reviewed by: Yoandy Mobley MD on 08/05/2023 5:21 PM PDT Approved by: Yoandy Mobley MD on 08/05/2023 5:21 PM PDT Station ID: [id number]
--- NOTE | 2023-08-05 17:31 | CT Report ---
PROCEDURE: Abdomen/Pelvis W INDICATIONS: lower abd pain CONTRAST: 100ml omni 300 TECHNIQUE: After the administration of intravenous contrast, a CT scan of the abdomen and pelvis was performed. Images were recorded and evaluated at appropriate window settings. Reformats: coronal and sagittal. F or radiation dose reduction, the following was used: automated exposure control, adjustment of mA and /or kV according to patient size. COMPARISON: 01/13/2021 FINDINGS: Image quality: Diagnostic. Lower chest: Mild dependent atelectasis. Liver: No solid mass. Gallbladder and biliary tree: No radiopaque stones or wall thickening. No biliary dilation. Spleen: No splenomegaly. Pancreas: No pancreatic ductal dilation. Adrenals: No adrenal nodule. Kidneys and ureters: No hydronephrosis. No renal cystic lesion which requires follow up. No solid mas s. Stomach, bowel and peritoneum: No bowel distension. No pathologic free fluid. Diverticulosis. There i s wall thickening and mild pericolic fat stranding involving the sigmoid colon, consistent with acute diverticulitis. No organized fluid collections or extraluminal gas. Normal appendix. Lymph nodes: No central or retroperitoneal adenopathy. Vessels: No infrarenal aortic aneurysm. Atherosclerotic vascular calcifications. PELVIS Reproductive organs: Prostatomegaly Bladder: Urinary bladder wall thickening which may be secondary to decompression.. Pelvic lymph nodes: No pelvic adenopathy by size criteria. Bones: No aggressive osseous abnormality. Multilevel degenerative changes of the spine. Grade I anter olisthesis of L4 on L5. Diffusely decreased osseous mineralization. Other: No significant ventral or inguinal hernia. IMPRESSION: 1.Acute uncomplicated sigmoid diverticulitis. No organized fluid collections or extraluminal gas. 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 2.Urinary bladder wall thickening which may be secondary to decompression. Recommend correlation with cystitis and consider urinalysis. Reviewed by: Yoandy Mobley MD on 08/05/2023 5:30 PM PDT Approved by: Yoandy Mobley MD on 08/05/2023 5:30 PM PDT Station ID: [id number]
[2023-08-05 17:35] VITALS: BP 134/74
[2023-08-05] MEDS: AMOX/CLAV 875 MG/125 MG TABLET PO STA (18:01)
[2023-08-05] MEDS: iohexoL-300 100 ML VIAL IVP ONE (18:45)
== END 2023-08-05 18:03 | disposition home or self-care (01) ==
LOC: ED 14:48
DX: N43.3 Hydrocele, unspecified (principal); K57.32 Diverticulitis of large intestine without perforation or abscess without bleeding; F17.200 Nicotine dependence, unspecified, uncomplicated
CPT/HCPCS: 36415; 74177; 76870; 80053; 81001; 83690; 85025; 93975; 99284; A9270; Q9967; 81003; 87086

== ENCOUNTER 2024-01-03 12:52 | Outpatient (CLI) | payer MEDICARE ==
[2024-01-03] MEDS: GADOTERATE MEGLUMINE 10 MMOL/20 ML VIAL IVP ONE (13:30)
[2024-01-03 13:35] LABS: CREATININE 1.1 mg/dL (0.6-1.3)
[2024-01-03] MEDS ORDERED: GADOTERATE MEGLUMINE 10 MMOL/20 ML VIAL ONE (13:44)
--- NOTE | 2024-01-04 08:43 | MRI Report ---
PROCEDURE: Pelvis W/WO INDICATIONS: ELEVATED PSA CONTRAST: Clariscan 16.6ml TECHNIQUE: Coronal ultra fast SE, axial T1 FSE with fat saturation, 3-plane nonbreath-hold T2 FSE. After the ad ministration of contrast, dynamic axial, delayed axial and coronal ultra fast GE or 2-D spoiled GE wi th fat saturation through the pelvis. Optional diffusion weighted imaging and ADC may be performed. COMPARISON: None. FINDINGS: Image quality: Diffusion weighted and dynamic contrast enhanced images are diagnostic. Prostate: Gland size is 5.8 x 5.1 x 6.1 cm; ellipsoid gland volume is 94 mL. PSA Density: 0.0374 Transitional zone heterogenous nodules are present, either well encapsulated or mostly encapsulated, compatible with PI-RADS 1 or 2 likely BPH nodules. These findings can obscure small cancers. No suspicious high risk PI-RADS 4 or 5 lesions identified. Mild fibrotic changes are seen in the seminal vesicles. Genitourinary system: Mildly trabeculated bladder is usually from chronic obstruction. Bowel and peritoneum: Colonic diverticula. Rectum is unremarkable Nodes and vessels: No aneurysmal vessel or pathologic lymph nodes by size criteria. Soft tissues: Unremarkable pelvic wall Bones: Lesion at the right femoral head is seen measuring up to 1.6 cm. IMPRESSION: No PI RADS 4 or 5 lesions suspicious for prostate adenocarcinoma. The predominant finding is prostato megaly and BPH, PI RADS 2. Consider continued PSA surveillance and possible surveillance MRI if clini asim indicated. Incidental note of enhancing lesion partially seen at the right femoral head measuring up to 1.6 cm, indeterminate and partially evaluated on this study. Reviewed by: Arnold Lam MD on 01/04/2024 8:42 AM PDT Approved by: Arnold Lam MD on 01/04/2024 8:42 AM PDT Station ID: [id number]
== END 2024-01-03 12:53 | disposition home or self-care (01) ==
LOC: LAB 12:52
PROVIDERS: ATTEND Urology
DX: R97.20 Elevated prostate specific antigen [PSA] (principal)
CPT/HCPCS: 36415; 82565

== ENCOUNTER 2024-01-03 13:45 | Outpatient (CLI) | payer MEDICARE ==
--- NOTE | 2024-01-03 21:04 | XRAY Report ---
PROCEDURE: Knee 3V RT INDICATIONS: PAIN IN RIGHT KNEE TECHNIQUE: 3 views of the knee was obtained. COMPARISON: None FINDINGS: Bones: No fractures or dislocations. No suspicious bony lesions. Soft tissues: No knee joint effusion. No suspicious soft tissue calcifications or masses. IMPRESSION: Medial compartment moderate joint space narrowing. Popliteal atherosclerotic vascular calcifications Reviewed by: Juanito Galindo MD on 01/03/2024 8:03 PM AKDT Approved by: Juanito Galindo MD on 01/03/2024 8:03 PM AKDT Station ID: [id number]
== END 2024-01-03 13:46 | disposition home or self-care (01) ==
LOC: DI 13:45
PROVIDERS: ATTEND Nurse Practitioner Family
DX: M25.861 Other specified joint disorders, right knee (principal); I70.201 Unspecified atherosclerosis of native arteries of extremities, right leg